=== PATIENT | female | born 1975 | race Caucasian/White ===

== ENCOUNTER 2017-08-13 14:50 | Emergency (ER) | payer OTHER, SELFPAY ==
--- NOTE | 2017-08-13 15:08 | HMH.EDUTC ---
[facility] [place] Disposition Clinical Impression: Gastroenteritis Disposition: Home, Self-Care Condition on Discharge: Good Instructions: DI for Viral Gastroenteritis -- Adult Prescriptions: Dicyclomine HCl [Bentyl 10mg capsule] 10 mg PO TID PRN 10 Days #30 cap PRN Reason: Cramping Ondansetron [Zofran 8mg ODT] 8 mg PO TID PRN 10 Days #30 tab PRN Reason: Nausea Forms: Work/School Release Time of Disposition: 15:17 Medical Decision Making - Medical Records Medical records reviewed: Yes: I reviewed the patient's medical records. - Jos Inquiry Pt receiving controlled substance: No [facility] [place] HPI - General Stated complaint: nausea Time Seen by Provider: 08/13/17 15:08 - History of Present Illness Provider Complaint: Nausea, abdominal cramps, loose stools X 1 day. No fever. No vomiting. No bloody stools. No history of diverticulitis. Has waves of cramps followed by loose stools. Onset (ago): day(s) (1) Location: abdomen Relieving factors: none Exacerbating factors: none Associated symptoms: nausea/vomiting Treatments prior to arrival: none - Related Data Previous Rx's Medication Instructions Recorded Dicyclomine HCl [Bentyl 10mg 10 mg PO TID PRN 10 Days #30 cap 08/13/17 capsule] Ondansetron [Zofran 8mg ODT] 8 mg PO TID PRN 10 Days #30 tab 08/13/17 Allergies Allergy/AdvReac Type Severity Reaction Status Date / Time No Known Allergies Allergy Unverified 05/03/17 14:33 [facility] History I have reviewed the patient's past medical history: Yes ROS Obtained: Yes All systems reviewed & no additional complaints - Gastrointestinal Gastrointestingal: Reports: abdominal pain, cramping, loose stools, nausea. Denies: vomiting blood, black, tarry stools, vomiting Physical Exam - General General appearance: alert, in no apparent distress - Head Head exam: atraumatic, normocephalic, normal inspection - Eye Eye exam: Present: normal appearance, PERRL, EOMI - ENT ENT exam: Present: normal exam, normal oropharynx, mucous membranes moist, TM's normal bilaterally, normal external ear exam - Neck Neck exam: Present: normal inspection, full ROM, trachea midline. Absent: meningismus, lymphadenopathy - Chest Chest inspection: Present: normal inspection, symmetric chest wall rise. Absent: tenderness - Respiratory Respiratory exam: Present: normal lung sounds bilaterally. Absent: respiratory distress - Cardiovascular Cardiovascular exam: Present: regular rate, normal rhythm. Absent: JVD - Abdominal Exam Abdominal exam: Present: soft, normal bowel sounds, hyperactive bowel sounds. Absent: distention, tenderness, guarding - Extremities Exam Extremities exam: Present: normal inspection, full ROM, normal capillary refill. Absent: calf tenderness - Back Exam Back exam: Present: normal inspection. Absent: tenderness - Neurological Exam Neurological exam: Present: alert, oriented X3 - Psychiatric Psychiatric exam: Present: normal affect, normal mood - Skin Skin exam: Present: warm, dry, intact, normal color - Lymphatic Lymphatic Findings: no adenopathy
[2017-08-13 15:10] VITALS: BP 106/64; PULSE 78; RESP 18; TEMP 37.2; O2SAT 98; BMI 28.3
--- NOTE | 2017-08-13 15:14 | ED_ITS ---
[facility] [place] Disposition Clinical Impression: Gastroenteritis Disposition: Home, Self-Care Condition on Discharge: Good Instructions: DI for Viral Gastroenteritis -- Adult Prescriptions: Dicyclomine HCl [Bentyl 10mg capsule] 10 mg PO TID PRN 10 Days #30 cap PRN Reason: Cramping Ondansetron [Zofran 8mg ODT] 8 mg PO TID PRN 10 Days #30 tab PRN Reason: Nausea Forms: Work/School Release Time of Disposition: 15:17 Medical Decision Making - Medical Records Medical records reviewed: Yes: I reviewed the patient's medical records. - Jos Inquiry Pt receiving controlled substance: No [facility] [place] HPI - General Stated complaint: nausea Time Seen by Provider: 08/13/17 15:08 - History of Present Illness Provider Complaint: Nausea, abdominal cramps, loose stools X 1 day. No fever. No vomiting. No bloody stools. No history of diverticulitis. Has waves of cramps followed by loose stools. Onset (ago): day(s) (1) Location: abdomen Relieving factors: none Exacerbating factors: none Associated symptoms: nausea/vomiting Treatments prior to arrival: none - Related Data Previous Rx's Medication Instructions Recorded Dicyclomine HCl [Bentyl 10mg 10 mg PO TID PRN 10 Days #30 cap 08/13/17 capsule] Ondansetron [Zofran 8mg ODT] 8 mg PO TID PRN 10 Days #30 tab 08/13/17 Allergies Allergy/AdvReac Type Severity Reaction Status Date / Time No Known Allergies Allergy Unverified 05/03/17 14:33 [facility] History I have reviewed the patient's past medical history: Yes ROS Obtained: Yes All systems reviewed & no additional complaints - Gastrointestinal Gastrointestingal: Reports: abdominal pain, cramping, loose stools, nausea. Denies: vomiting blood, black, tarry stools, vomiting Physical Exam - General General appearance: alert, in no apparent distress - Head Head exam: atraumatic, normocephalic, normal inspection - Eye Eye exam: Present: normal appearance, PERRL, EOMI - ENT ENT exam: Present: normal exam, normal oropharynx, mucous membranes moist, TM's normal bilaterally, normal external ear exam - Neck Neck exam: Present: normal inspection, full ROM, trachea midline. Absent: meningismus, lymphadenopathy - Chest Chest inspection: Present: normal inspection, symmetric chest wall rise. Absent : tenderness - Respiratory Respiratory exam: Present: normal lung sounds bilaterally. Absent: respiratory distress - Cardiovascular Cardiovascular exam: Present: regular rate, normal rhythm. Absent: JVD - Abdominal Exam Abdominal exam: Present: soft, normal bowel sounds, hyperactive bowel sounds. Absent: distention, tenderness, guarding - Extremities Exam Extremities exam: Present: normal inspection, full ROM, normal capillary refill. Absent: calf tenderness - Back Exam Back exam: Present: normal inspection. Absent: tenderness - Neurological Exam Neurological exam: Present: alert, oriented X3 - Psychiatric Psychiatric exam: Present: normal affect, normal mood - Skin Skin exam: Present: warm, dry, intact, normal color - Lymphatic Lymphatic Findings: no adenopathy
[2017-08-13 15:25] VITALS: BP 109/72; PULSE 82; RESP 20; TEMP 37.1; O2SAT 100
== END 2017-08-13 15:30 | disposition home or self-care (01) ==
PROVIDERS: Emergency Provider Physician Assistant; Family Provider Family Medicine
DX: K52.9 Noninfective gastroenteritis and colitis, unspecified (principal)
CPT/HCPCS: 99201

== ENCOUNTER 2019-07-24 13:52 | Outpatient (RCR) | payer OTHER, SELFPAY ==
--- NOTE | 2019-07-24 15:29 | HMH.PTOPEV ---
PT Outpatient Evaluation Rehab PT Outpatient Evaluation Start: 07/24/19 14:20 Freq: Status: Active Protocol: Document 07/24/19 14:20 ALBERT (Rec: 07/24/19 15:29 ALBERT [id number]) Electronically Signed By Shravan Rodriguez, PT 07/24/19 14:20 Outpatient Therapy Subjective History Subjective History Pt reports insidious onset L sided neck pain beginning ~ 2 wks ago. Pt reports pain has since progressed w/radicular s /s down L UE to hand, 'my assembly inspector feels weak, and my left arm feels heavy'. Chief Complaint Pain,Stiff,Paresthesia, Weakness Symptom Type Ache,Throb,Sharp,Dull,Numbness ,Tingling Symptoms Relieved By Rest/Positioning,Ice Symptoms Aggravated By Sitting,Physical Activity, Lifting Prior Functional Limitations Reaching,Lifting,Housework Current Functional Limitations Reaching,Lifting,Housework, Sitting Symptom Description Constant but Variable Level of pain today (0-10) 3 Pain scale - at its best (0-10) 2 Pain scale - at its worst (0-10) 9 Cervical Eval Palpation Cervical Muscles L CT Junction,L Upper Trapezius,L Thoracic Paraspinals Cervical/Thoracic Palpation Findings Tenderness,Trigger Point Posture Head/C-Spine Posture Sitting Position Neutral Position Head/C-Spine Posture Standing Position Neutral Position Flexibility Deficits Upper Trapezius Muscle Length (L) Moderate Tightness Levaetor Scapulae Muscle Length (L) Moderate Tightness Scalene Group Muscle Length (L) Moderate Tightness Pectoralis Major Muscle Length (R) Mild Tightness,(L) Mild Tightness Pectoralis Minor Muscle Length (R) Mild Tightness,(L) Mild Tightness Passive Joint Mobility Cervical PIVM WNL: R OA L OA R AA L AA R C2/3 L C2/3 R C3/4 L C3/4 R C4/5 L C4/5 R C5/6 L C5/6 R C6/7 L C6/7 R C7/T1 L C7/T1 AROM Cervical Spine Extension Active
== END 2019-07-24 15:00 | disposition home or self-care (01) ==
LOC: PT 13:52
PROVIDERS: PCP Physician Assistant; Visit Provider Physician Assistant
DX: G54.2 Cervical root disorders, not elsewhere classified (principal)
CPT/HCPCS: 97010; 97012; 97014; 97035; 97110; 97163; G0283

== ENCOUNTER 2020-03-24 00:25 | Emergency (ER) | payer OTHER, SELFPAY ==
[2020-03-24 00:26] VITALS: BP 144/90; PULSE 83; RESP 16; TEMP 36.8; O2SAT 100; BMI 30.1
--- NOTE | 2020-03-24 00:46 | HMH.EDDENT ---
ED Disposition Clinical Impression: Pain, dental Disposition: Home, Self-Care Condition on Discharge: Good Instructions: DI for Dental Pain Additional Instructions: see pcp and dentist for follow up Prescriptions: cephALEXin [Keflex 500mg Cap] 500 mg PO TID #30 cap Transmission Status: Pending to [id number] Referrals: Jose Diego MD [Primary Care Provider] - - Critical Care Critical Care Time: No Attestation: On , the high probability of a clinically significant, sudden or life threatening deterioration of the following system(s) required my full and direct attention, intervention and personal management. The time I documented below is in addition to time spent performing reported procedures but includes the following listed in this critical care notation. Medical Decision Making - Medical Records Medical records reviewed: Yes: I reviewed the patient's medical records. - Jos Inquiry Pt receiving controlled substance: No Vital Signs: 03/24/20 00:26 Temperature 98.2 F Temperature Source Oral Pulse Rate [Left Radial] 83 Respiratory Rate 16 Blood Pressure [Right Arm] 144/90 H Blood Pressure Mean [Right Arm] 108 Blood Pressure Source [Right Arm] Automatic Cuff Blood Pressure Position [Right Arm] Sitting 02 Sat by Pulse Oximetry 100 Oxygen Delivery Method Room Air Orders (Tests/Meds): ED MEDICATIONS Discontinued Medications Generic Name Dose Route Start Last Admin Trade Name Freq PRN Reason Stop Dose Admin Benzocaine/Butamben/Tetracaine HCl 1 gm 03/24/20 00:41 Tetracaine/Benzocaine/Butamben 56 Gm [place] TP 03/24/20 00:42 ONCE ONE Lidocaine HCl 15 ml 03/24/20 00:40 Lidocaine 2% Viscous Cammie 15ml Udc PO 03/24/20 00:41 ONCE ONE Dental HPI - General Chief complaint: Dental/Oral Stated complaint: Tooth ache Time Seen by Provider: 03/24/20 00:46 Mode of Arrival: Ambulatory Source of Information: Patient, Significant Other, Medical Record Limitations: No Limitations Description of Symptoms (Recalled from ER Triage Doc. by RN): pt complains of dental pain to the right lower jaw. pt stated it started about an hour after she ate this evening. - History of Present Illness HPI Narrative: acute rt side lower jaw pain and swelling Complaint: tooth pain Onset (ago): hour(s) Severity: moderate Treatment prior to arrival: none - Related Data Previous Rx's Medication Instructions Recorded cephALEXin [Keflex 500mg Cap] 500 mg PO TID #30 cap 03/24/20 Allergies Allergy/AdvReac Type Severity Reaction Status Date / Time No Known Allergies Allergy Verified 03/24/20 00:41 [facility] History - Hepatitis A Screen Drug use history?: No High risk sexual behaviors?: No History of sexually transmitted infection?: No Currently employed?: No Childcare worker?: No Do you have indoor plumbing?: Yes Do you have electricity?: Yes Attestation statement:: This patient has been screened for Hepatitis A risk factors. I have reviewed the patient's past medical history: Yes Medical History: Reports:: Anxiety, Asthma, Depression Denies:: Cancer, Diabetes Mellitus Type 1, Diabetes Mellitus Type 2, MRSA Other Surgeries: Yes: Dilation and Curettage Amputation: No Fractures: No Comment: D&C for SAB (suction0 - Social History Smoking Status: Current every day smoker Tobacco Type: cigarettes # Packs/Day (cigarettes): 1 Alcohol Intake: current Alcohol Intake Frequency:: holidays/special occasions only Substance Use Type: denies use Occupational Status: unemployed Housing: house Household Members: family - Psychiatric History Pschychiatric History:: Reports:: Anxiety, Depression Family Hx:: Cancer, Diabetes, Heart Attack, Thyroid Disorder, Hyperlipidemia, Hypertension ROS Obtained: Yes All systems reviewed & no additional complaints - Constitutional Constitutional: Denies fever(s) - Eyes Eyes: Denies change in vision - ENT Ears, Nose,
[2020-03-24 00:57] VITALS: BP 133/79; PULSE 79; RESP 14; TEMP 36.8; O2SAT 98
== END 2020-03-24 01:02 | disposition home or self-care (01) ==
PROVIDERS: Emergency Provider Emergency Medicine; PCP Emergency Medicine
DX: R68.84 Jaw pain (principal); K08.89 Other specified disorders of teeth and supporting structures; F17.210 Nicotine dependence, cigarettes, uncomplicated; F41.8 Other specified anxiety disorders; J45.909 Unspecified asthma, uncomplicated; Z79.899 Other long term (current) drug therapy
CPT/HCPCS: 99282

== ENCOUNTER 2020-12-22 15:47 | Emergency (ER) | payer BC, SELFPAY ==
[2020-12-22 16:39] VITALS: BP 117/84; PULSE 63; RESP 20; TEMP 37.1; O2SAT 100; BMI 31.8
--- NOTE | 2020-12-22 17:23 | HMH.EDUTC ---
[facility] [place] Disposition Clinical Impression: Cellulitis of abdominal wall Sting from hornet, wasp, or bee Qualifiers: Encounter type: initial encounter Injury intent: accidental or unintentional Qualified Code(s): T63.451A - Toxic effect of venom of hornets, accidental (unintentional), initial encounter Disposition: Home, Self-Care Condition on Discharge: Good Instructions: Cellulitis, DI for Insect Bites and Stings Additional Instructions: Keep the affected area clean and dry. Follow up with your regular doctor. Take the antibiotics as directed and apply the topical antibiotics as directed. Apply warm wet compresses to the affected area three or four times per day. GO TO THE ER FOR ANY WORSENING SYMPTOMS Don't start the oral steroids until tomorrow, since you had the shot here today. Prescriptions: Sulfamethoxazole/Trimethoprim [Bactrim DS tablet] 1 each PO BID 10 Days #20 tab Transmission Status: Received by [id number] Mupirocin [Bactroban 2% Ointment 22gm tube] 1 applicatio TP TID 7 Days #1 tube Transmission Status: Received by [id number] cephALEXin [cephALEXin 500mg capsule] 500 mg PO Q6H 10 Days #40 cap Transmission Status: Received by [id number] Referrals: Jose Diego MD [Primary Care Provider] - Time of Disposition: 17:46 Medical Decision Making - Medical Records Medical records reviewed: No: I reviewed the patient's medical records. - Jos Inquiry Pt receiving controlled substance: No Vital Signs: 12/22/20 16:39 12/22/20 17:47 Temperature 98.7 F 98.5 F Temperature Source Oral Pulse Rate 70 Pulse Rate [Right] 63 Respiratory Rate 20 18 Blood Pressure 000/00 L Blood Pressure [Right Arm] 117/84 Blood Pressure Mean [Right Arm] 95 02 Sat by Pulse Oximetry 100 Orders (Tests/Meds): ED MEDICATIONS Discontinued Medications Generic Name Dose Route Start Last Admin Trade Name Freq PRN Reason Stop Dose Admin Ceftriaxone Sodium 1 gm 12/22/20 17:20 12/22/20 17:47 Ceftriaxone 1gm Vial IM 12/22/20 17:21 1 gm ONCE ONE Administration Protocol Lidocaine HCl 0 ml 12/22/20 17:20 12/22/20 17:47 Lidocaine 1% 5ml Pf Vial IM 12/22/20 17:21 2.5 ml ONCE ONE Administration Methylprednisolone Sodium Succinate 125 mg 12/22/20 17:20 12/22/20 17:46 Methylprednisolone Sod Succ 125mg Vial IM 12/22/20 17:21 125 mg ONCE ONE Administration ORDERS Category Date Time Status Wound Culture and Gram Stain Stat Micro 12/22/20 17:30 Results [facility] [place] HPI - General Stated complaint: poss insect bite Time Seen by Provider: 12/22/20 17:24 Mode of Arrival: Ambulatory Source of Information: Patient Limitations: No Limitations Description of Symptoms (Recalled from Triage Doc. by RN): pt states she was stung thurs. by what looked like a black wasp. she was stung on her LLQ. pt now presents with redness and swelling taking up her entire lower abd. pt states it is extremely itchy and she has a black scab where the initial sting was. HEENT Symptoms (Recalled from RN notes): No Resp Symptoms (Recalled from RN notes): No Skin Symptoms (Recalled from RN notes): Yes (red, swollen, itchy, warm rash on entire Lower abd) MS Symptoms (Recalled from RN notes): No Functional Status (Recalled from RN notes): na - History of Present Illness Provider Complaint: She states that 3 days ago she was stung on her abdomen thru her shirt. Since then she has had redness and pain of her abdomen. - Related Data Previous Rx's Medication Instructions Recorded cephALEXin [Keflex 500mg Cap] 500 mg PO TID #30 cap 03/24/20 Mupirocin [Bactroban 2% Ointment 1 applicatio TP TID 7 Days #1 tube 12/22/20 22gm tube] Sulfamethoxazole/Trimethoprim 1 each PO BID 10 Days #20 tab 12/22/20 [Bactrim DS tablet] cephALEXin [cephALEXin 500mg 500 mg PO Q6H 10 Days #40 cap 12/22/20 capsule] Allergies Allergy/AdvReac Type Severity React
[2020-12-22 17:47] VITALS: BP 000/00; PULSE 70; RESP 18; TEMP 36.9
== END 2020-12-22 17:59 | disposition home or self-care (01) ==
PROVIDERS: Emergency Provider Nurse Practitioner Family; PCP Emergency Medicine
DX: L03.311 Cellulitis of abdominal wall (principal); T63.451A Toxic effect of venom of hornets, accidental (unintentional), initial encounter; F41.8 Other specified anxiety disorders; F17.210 Nicotine dependence, cigarettes, uncomplicated
CPT/HCPCS: 87070; 87077; 87186; 87205; 96372; 99202; G0463

== ENCOUNTER → 2021-08-13 17:36 | Outpatient (CLI) | payer BC, SELFPAY ==
[2021-08-13 17:29] LABS: Basophils # 0.3 K/mm3 (0-0.2); Basophils % 1.6 % (0.1-2.0); Eosinophils # 0.3 K/mm3 (0.0-0.4); Eosinophils % 1.7 % (0.1-12.0); Hematocrit 47.7 % (37.0-47.0); Hemoglobin 15.5 g/dL (12.2-16.2); Lymphocytes # 2.8 K/mm3 (0.7-4.5); Lymphocytes % 17.9 % (10-50); Mean Corpuscular HGB Conc 32.4 g/dL (31.8-35.4); Mean Corpuscular Hemoglobin 32.1 pg (27.0-31.2); Mean Corpuscular Volume 99.1 fl (81-99); Monocytes # 0.8 K/mm3 (0.1-1.0); Monocytes % 5.1 % (1.7-9.3); Neutrophils # 11.6 K/mm3 (1.8-7.8); Neutrophils % 73.7 % (37.0-80.0); Platelet Count 391 K/mm3 (142-424); Red Blood Count 4.81 M/mm3 (4.20-5.40); Red Cell Distribution Width 13.4 % (11.5-17.5); White Blood Count 15.8 K/mm3 (4.8-10.8)
[2021-08-13 17:42] LABS: Alanine Aminotransferase 31 U/L (12-78); Albumin/Globulin Ratio 1.9 (1.1-1.8); Alkaline Phosphatase 75 U/L (38-126); Anion Gap 13.2 mEq/L (5-15); Aspartate Amino Transferase 35 U/L (14-36); Bilirubin,Total 0.5 mg/dl (0.2-1.3); Blood Urea Nitrogen 13 mg/dl (7-17); Calcium 10.1 mg/dl (8.4-10.2); Carbon Dioxide 26 mmol/L (22.0-30.0); Chloride 105 mmol/L (98-107); Chol/HDL Ratio 6.4 (1-3.5); Cholesterol 281 mg/dl (140-200); Estimated Glomerular Filt Rate 91 ml/min (>60); GFR (African American) 111 ML/MIN (>60); Globulin 2.6 g/dL (1.3-3.2); Glucose 96 mg/dl (74-100); HDL Cholesterol 44 mg/dl (40-60); Magnesium 1.9 mg/dl (1.6-2.3); Potassium 4.2 mmoL/L (3.5-5.1); Sodium 140 mmol/L (136-145); Total Protein,Serum 7.6 g/dl (6.3-8.2); Triglycerides 218 mg/dl (30-150); VLDL Cholesterol 44 mg/dL (0-40)
[2021-08-13 17:45] LABS: 25-OH Vitamin D, Total 22.2 ng/mL (30-100)
[2021-08-13 17:53] LABS: Direct LDL Cholesterol 167.56 mg/dL (100-129)
[2021-08-13 17:58] LABS: MANUAL DIFFERENTIAL MANUAL DIFFERENTIAL (MANUAL DIFF)
[2021-08-13 18:12] LABS: Thyroid Stimulating Hormone 1.69 uIU/mL (0.465-4.68)
[2021-08-13 18:17] LABS: Eosinophils % 2 % (0-3); Lymphocytes % 16 % (10-50); Monocytes % 4 % (2-9); Neutrophils % 78 % (42-76); Platelet Estimate Normal; RBC Morphology Normal; Total Cells Counted 100
[2021-08-13 18:31] LABS: Vitamin B12 231 pg/mL (239-931)
== END ==
PROVIDERS: Visit Provider Physician Assistant
DX: F32.A Depression, unspecified (principal); E55.9 Vitamin D deficiency, unspecified; Z79.899 Other long term (current) drug therapy
CPT/HCPCS: 80053; 80061; 82306; 82607; 83735; 84443; 85007; 85025

== ENCOUNTER → 2021-11-05 12:38 | Outpatient (CLI) | payer BC, SELFPAY ==
--- NOTE | 2021-11-05 13:57 | MM_ITS ---
PROCEDURE INFORMATION: Exam: MG Bilateral Screening 3D Mammography Exam date and time: 11/05/2021 1:52 PM Age: 46 years old Clinical indication: Screening examination TECHNIQUE: Imaging protocol: Bilateral Screening tomosynthesis and 2D mammography including computer-aided detection (CAD) when performed. COMPARISON: No relevant prior studies available. FINDINGS: MAMMOGRAPHY: Breast composition: There are scattered areas of fibroglandular density. Mass: None. Architectural distortion: None. Calcifications: No suspicious calcifications. Asymmetric density: None. Skin thickening: None. Axillary adenopathy: None. IMPRESSION: No mammographic evidence of malignancy. Annual screening is recommended unless otherwise clinically indicated. ASSESSMENT: BI-RADS Category 1: Negative
== END ==
PROVIDERS: PCP Emergency Medicine; Visit Provider Physician Assistant
DX: Z12.31 Encounter for screening mammogram for malignant neoplasm of breast (principal); R06.09 Other forms of dyspnea; F17.210 Nicotine dependence, cigarettes, uncomplicated
CPT/HCPCS: 77063; 77067; 94060; 94726; 94729

== ENCOUNTER 2022-11-21 12:07 | Emergency (ER) | payer BC, SELFPAY ==
[2022-11-21 13:10] VITALS: BP 129/74; PULSE 73; RESP 18; TEMP 37.1; O2SAT 98; BMI 30.6
[2022-11-21 13:28] VITALS: BP 129/74; PULSE 73; RESP 18; TEMP 37.1; O2SAT 98
--- NOTE | 2022-11-21 13:33 | EXP.UTC ---
Discharge Plan Disposition Patient Disposition: Home, Self-Care Condition: Good Prescriptions Prescriptions: New polymyxin B sulf-trimethoprim [Polytrim] 10,000 unit- 1 mg/mL drops 2 drp ophthalmic (eye) Q6H 7 Days Qty: 10 0RF Rx Instructions: left eye while awake; do not exceed 6 doses in 24 hours Referrals Follow up/Referrals: Jose Diego MD [Primary Care Provider] - See instructions Activity Restrictions/Add. Instructions Additional Instructions/Restrictions: Clean hands before and after applying drops Use drops as prescribed Clean matting from eye with warm water and baby shampoo Follow up with Eye Doctor if no improvement or any worsening of symptoms Clinical Impressions Clinical Impression: Conjunctivitis Qualifiers: Conjunctivitis type: unspecified Laterality: left Qualified Code(s): H10.9 - Unspecified conjunctivitis Instructions Patient Instructions: Conjunctivitis, DI for Conjunctivitis Discharge ED Provider: Iza Burgess [facility] [place] General Stated complaint: LT eye redness w/drainage Mode of Arrival: Ambulatory Source of Information: Patient Limitations: No Limitations Time Seen by Provider: 11/21/22 13:33 Description of Symptoms (Recalled from Triage Doc. by RN): PATIENT C/O REDNESS TO LEFT EYE SINCE LAST NIGHT HEENT Symptoms (Recalled from RN notes): Yes Resp Symptoms (Recalled from RN notes): No Skin Symptoms (Recalled from RN notes): No MS Symptoms (Recalled from RN notes): No Functional Status (Recalled from RN notes): WNL History of Present Illness Provider Complaint: Patient states that she thinks she may have pink eye States that yesterday her left eye felt puffy, irritated and draining States that this morning she woke up and it was goopy matted and looked a little red States that it is puffy and has continued to have drainage throughout the day so this evening she came in to get it checked Denies known eye injury or FB Related Data Previous Rx's Medication Instructions Recorded polymyxin B sulfate 10,000 2 drp ophthalmic (eye) Q6H 7 days 11/21/22 unit-trimethoprim 1 mg/mL eye #10 mL drops (Polytrim) Allergies Allergy/AdvReac Type Severity Reaction Status Date / Time No Known Allergies Allergy Verified 08/26/22 13:39 Worker's Comp Is this a Worker's Comp case?: No [facility] Disclaimer: The information contained in this section may have been updated after the patient was seen, as this information can be updated by other users. Medical History Allergic rhinitis Anxiety and depression Asthma Dyspnea on exertion Elbow pain Eosinophilia Lateral epicondylitis, right elbow Moderate persistent asthma Smoking greater than 20 pack years Surgical History H/O dilation and curettage Family History Other Asthma Lung cancer Social History Smoking Status: Current every day smoker tobacco type: cigarettes packs per day: 1 alcohol intake: current substance use type: denies use current occupational status: unemployed Travel in the last 8 weeks: None household members: family housing: house ROS Obtained: Yes All systems reviewed & no additional complaints except as documented and Yes Systems reviewed as appropriate & no additional complaints except as documented Constitutional Constitutional: Reports system reviewed and no additional complaints, except as documented and Reports as per HPI Eyes Eyes: Reports system reviewed and no additional complaints, except as documented, Reports as per HPI, Reports eye discharge and Reports irritation ENT Ears, Nose, Mouth, and Throat: Reports system reviewed and no additional complaints, except as documented and Reports as per HPI Cardiovascular Cardiovascular: Reports system reviewed and no additional complaints, except as documented and Reports as per HPI Respirat
== END 2022-11-21 13:46 | disposition home or self-care (01) ==
PROVIDERS: Emergency Provider Nurse Practitioner; PCP Emergency Medicine
DX: H10.32 Unspecified acute conjunctivitis, left eye (principal); F17.210 Nicotine dependence, cigarettes, uncomplicated; J45.40 Moderate persistent asthma, uncomplicated; J30.9 Allergic rhinitis, unspecified; F41.9 Anxiety disorder, unspecified; F32.A Depression, unspecified
CPT/HCPCS: 99212; 99214; G0463

== ENCOUNTER → 2023-03-22 15:09 | Outpatient (CLI) | payer BC, SELFPAY ==
--- NOTE | 2023-03-22 15:13 | XR_ITS ---
FINAL REPORT CLINICAL HISTORY: lt wrist pain FINDINGS: 3 views of the left wrist were performed. There is no significant soft tissue swelling. There is no displacement of the pronator fat pad. There is mild ulnar minus variation. The scaphoid is intact. The carpal bones are normally aligned. IMPRESSION: No acute bony abnormalities. Authenticated and ERN
--- NOTE | 2023-03-22 15:13 | XR_ITS ---
FINAL REPORT CLINICAL HISTORY: Rt Wrist pain FINDINGS: 3 views of the right wrist were performed. There is mild volar soft tissue swelling. There is ulnar minus variation. The scaphoid is intact. The carpal bones are normally aligned. The distal radius and ulna are intact. IMPRESSION: Mild soft tissue swelling with no acute bony abnormalities. Authenticated and ERN
== END ==
LOC: RAD 15:10
PROVIDERS: PCP Emergency Medicine; Visit Provider Orthopaedic Surgery
DX: M25.531 Pain in right wrist (principal); M25.532 Pain in left wrist; G56.03 Carpal tunnel syndrome, bilateral upper limbs
CPT/HCPCS: 73110

== ENCOUNTER 2024-08-06 13:01 | Outpatient (CLI) | payer BC, SELFPAY ==
--- NOTE | 2024-08-06 13:14 | MM_ITS ---
PROCEDURE INFORMATION: Exam: MG Bilateral Screening 3D Mammography Exam date and time: 08/06/2024 1:17 PM Age: 48 years old Clinical indication: Screening mammogram TECHNIQUE: Imaging protocol: Bilateral Screening tomosynthesis and 2D mammography including computer-aided detection (CAD) when performed. COMPARISON: MG MM DIG SCREENING MAMM BI W/CAD 11/05/2021 1:52 PM FINDINGS: MAMMOGRAPHY: Breast composition: There are scattered areas of fibroglandular density. Mass: None. Architectural distortion: No new or suspicious architectural distortion. Calcifications: No new or suspicious calcifications are present Asymmetric density: No new or suspicious asymmetric density is present Skin thickening: None. Axillary adenopathy: None. IMPRESSION: No mammographic evidence of malignancy. Recommend annual screening mammography unless otherwise clinically indicated. ASSESSMENT: BI-RADS category 1: Negative.
== END 2024-08-06 23:59 | disposition home or self-care (01) ==
PROVIDERS: PCP Physician Assistant; Visit Provider Physician Assistant
DX: Z12.31 Encounter for screening mammogram for malignant neoplasm of breast (principal)
CPT/HCPCS: 77063; 77067

== ENCOUNTER 2024-10-18 19:25 | Outpatient (CLI) | payer BC, SELFPAY ==
[2024-10-18 19:58] LABS: Coronavirus 19, PCR Not Detected (NotDetected); Influenza A, PCR Not Detected (NotDetected); Influenza B, PCR Not Detected (NotDetected)
== END 2024-10-18 23:59 | disposition home or self-care (01) ==
LOC: LAB.DROPOF 10-19 12:33
PROVIDERS: PCP Student in an Organized Health Care Education/Training Program; Visit Provider Student in an Organized Health Care Education/Training Program
DX: R05.9 Cough, unspecified (principal)
CPT/HCPCS: 87636